=== PATIENT | female | born 1985 | race Caucasian/White ===

== ENCOUNTER 2019-10-19 14:18 | Emergency (ER) | payer OTHER ==
[~2019-10-19] VITALS: Ht 165.1 cm; Wt 59.0 kg
--- NOTE | 2019-10-19 14:49 | NUR ---
[employer]or assumes care- 1st contact with patient AOx4, NAD, for discharge per Dr Lamb. Patient is here for precription refill of her home medicines. Patient discharged to home in stable conditon with brisk steady gait. Written and verbal after care instructions given. Patient verbalizes understanding of instructions.
== END 2019-10-19 14:52 | disposition home or self-care (01) ==
LOC: ER 14:18
DX: F32.9 Major depressive disorder, single episode, unspecified (principal); Z76.0 Encounter for issue of repeat prescription; Z88.2 Allergy status to sulfonamides
CPT/HCPCS: A4663